=== PATIENT | female | born 1955 | race Caucasian/White ===

== ENCOUNTER → 2017-01-28 | Outpatient (CLI) | payer OTHER ==
[~2017-01-28] MED LIST: ACIPHEX OR; NEBUMIS2; SYMB80AE IN; [UNRECOGNIZED DRUG - OTHER] INH; [UNRECOGNIZED DRUG - REMARK]
--- NOTE | 2017-01-28 14:08 | REPMRS ---
Patient History The patient states she had a clinical breast exam in 01/2017. Patient is postmenopausal and is nulliparous. Family history of prostate cancer in father at age 50 or over and colorectal cancer in mother at age 50 or over. Digital Woman Screen Mammo: January 28, 2017 - Exam #: [id number] Bilateral CC and MLO view(s) were taken. Technologist: Patsy Robert, Technologist Prior study comparison: June 04, 2015, digital woman screen mammo performed at [facility]. May 23, 2014, digital woman screen mammo performed at [facility]. FINDINGS: There are scattered fibroglandular densities. There has been no change in the appearance of the mammogram from the prior studies. There is a mild amount of residual fibroglandular tissue which is fairly symmetric. There is no interval development of dominant mass, architectural distortion, or clustered microcalcification suggestive of malignancy. ASSESSMENT: BI-RADS/ACR category 1 mammogram. Negative. Recommendation Routine screening mammogram in 1 year (for women over age 40). This mammogram was interpreted with the aid of an FDA-approved computer-aided dectection system. Electronically Signed By: Magdi Tolbert MD 01/28/17 [id number]
== END ==
LOC: M WHC 10:54
PROVIDERS: ATTEND Nurse Practitioner Family
DX: Z12.31 Encounter for screening mammogram for malignant neoplasm of breast (principal)

== ENCOUNTER → 2019-01-23 | Outpatient (REF) | payer SELFPAY ==
--- NOTE | 2019-01-23 13:38 | REPMRS ---
Patient History The patient states she had a clinical breast exam in 12/2018. Patient is postmenopausal and is nulliparous. Family history of prostate cancer at age 50 or over in father, colorectal cancer at age 50 or over in mother. No Hormone Replacement Therapy 3D TOMOSYNTHESIS WAS PERFORMED. Digital Woman Screen Mammo: January 23, 2019 - Exam #: [id number] Bilateral CC and MLO view(s) were taken. Technologist: Patsy Robert, Technologist Prior study comparison: January 28, 2017, digital woman screen mammo performed at [facility] [employer] [facility]. June 04, 2015, digital woman screen mammo performed at [facility] [employer] [facility]. FINDINGS: There are scattered fibroglandular densities. There has been no change in the appearance of the mammogram from the prior studies. There is a mild amount of residual fibroglandular tissue which is fairly symmetric. There is no interval development of dominant mass, architectural distortion, or clustered microcalcification suggestive of malignancy. Assessment: BI-RADS/ACR category 1 mammogram. Negative Mammogram. Recommendation Routine screening mammogram in 1 year (for women over age 40). This mammogram was interpreted with the aid of an FDA-approved computer-aided dectection system. Electronically Signed By: Magdi Tolbert MD 01/23/19 [id number]
== END ==
LOC: M WHC 10:37 → EDSTATUS 11:00 → M WHC 13:32
PROVIDERS: ATTEND Nurse Practitioner Family
DX: Z12.31 Encounter for screening mammogram for malignant neoplasm of breast (principal); Z78.0 Asymptomatic menopausal state; Z80.0 Family history of malignant neoplasm of digestive organs

== ENCOUNTER → 2020-04-08 | Outpatient (CLI) | payer OTHER ==
--- NOTE | 2020-04-08 13:31 | REPMRS ---
Patient History The patient states she had a clinical breast exam in March 2020. Family history of prostate cancer at age 50 or over in father, colorectal cancer at age 50 or over in mother. No Hormone Replacement Therapy 3D TOMOSYNTHESIS WAS PERFORMED. The Matheus Rodriguez lifetime risk for breast cancer is 9.9%. [employer] A. Digital Woman Screen Mammo: April 08, 2020 - Exam #: [id number] Bilateral CC and MLO view(s) were taken. Technologist: Hortencia Moe, Technologist Prior study comparison: January 23, 2019, bilateral digital woman screen mammo performed at [facility]. January 28, 2017, digital woman screen mammo performed at [facility]. FINDINGS: There are scattered fibroglandular densities. There has been no change in the appearance of the mammogram from the prior studies. There is a mild amount of residual fibroglandular tissue which is fairly symmetric. There is no interval development of dominant mass, architectural distortion, or clustered microcalcification suggestive of malignancy. Assessment: BI-RADS/ACR category 1 mammogram. Negative Mammogram. Recommendation Routine screening mammogram in 1 year (for women over age 40). This mammogram was interpreted with the aid of an FDA-approved computer-aided dectection system. Electronically Signed By: Magdi Tolbert MD 04/08/20 [id number]
== END ==
LOC: M WHC 10:13
PROVIDERS: ATTEND Nurse Practitioner Family
DX: Z12.31 Encounter for screening mammogram for malignant neoplasm of breast (principal)